=== PATIENT | male | born 1995 | race American Indian/Alaskan Native ===

== ENCOUNTER 2020-01-08 10:49 | Emergency (ER) | payer SELFPAY ==
[2020-01-08 10:56] VITALS: BP 143/80
--- NOTE | 2020-01-08 11:02 | Event Note ---
ED Screening Note Date of service: 01/08/20 Time: 11:02 ED Screening Note: Patient complains of sudden onset of left wrist pain upon waking this morning He denies any injury He denies history of gout, however admits to family history of gout Patient rates his pain as a 9/10 in severity This initial assessment/diagnostic orders/clinical plan/treatment(s) is/are subject to change based on patients health status, clinical progression and re- assessment by fellow clinical providers in the ED. Further treatment and workup at subsequent clinical providers discretion. Patient/guardian urged not to elope from the ED as their condition may be serious if not clinically assessed and managed. Initial orders include: X-ray
--- NOTE | 2020-01-08 11:32 | XRay Report ---
LEFT WRIST 3 VIEWS INDICATION / CLINICAL INFORMATION: Posterior left wrist pain for 2 days. No known injury. COMPARISON: None available. FINDINGS: BONES and JOINT(S): A small triquetral avulsion fracture is noted. No dislocation. No significant art hritis. SOFT TISSUES: Mild edema is seen dorsally along the wrist. ADDITIONAL FINDINGS: None. IMPRESSION: Likely acute left triquetral fracture as above given the provided history. Please correlate with the clinical findings. Signer Name: Edilberto Perez MD Signed: 01/08/2020 11:28 AM Workstation Name: [id number]
[2020-01-08] MEDS ORDERED: IBUPROFEN 600 MG TAB PO ONE (15:24)
--- NOTE | 2020-01-08 15:28 | Emergency Department Report ---
Upper Extremity - HPI Chief Complaint: Extremity Injury, Upper Stated Complaint: HAND PAIN Time Seen by Provider: 01/08/20 11:01 Other History: Patient is a 24-year-old male who presents emergency room complaints of left wrist and hand pain that began this morning when he woke up. He states he thought he slept wrong on it but the pain made it difficult to move. He denies any fall, injury, hitting anything against it. He states he had a sprain in this wrist in 2013. He denies any numbness or weakness. He denies any past medical history. He denies allergies to medications. ED Review of Systems ROS: Stated complaint: HAND PAIN Other details as noted in HPI Comment: All other systems reviewed and negative ED Past Medical Hx - Past Medical History Previous Medical History?: Yes Hx Diabetes: Yes - Surgical History Past Surgical History?: No - Social History Smoking Status: Current Every Day Smoker Substance Use Type: Alcohol - Medications Home Medications: Home Medications Medication Instructions Recorded Confirmed Last Taken Type Acetaminophen/Codeine [Tylenol #3] 1 tab PO Q6H PRN #20 tab 09/27/15 Unknown Rx Ibuprofen [Motrin] 600 mg PO Q8H PRN #40 tablet 09/27/15 Unknown Rx Naproxen [EC-Naprosyn] 500 mg PO BID PRN #14 tablet. 01/08/20 Unknown Rx traMADoL [Ultram 50 MG tab] 50 mg PO Q8HR PRN #7 tablet 01/08/20 Unknown Rx Upper Extremity Exam - Exam General: Vital signs noted. No distress. Alert and acting appropriately. Arm Exam: No Arm/Humerus Tenderness, No Arm Deformity Elbow: Yes Normal Range of Motion in Elbow, No Elbow Tenderness, No Elbow Deformity Forearm: No Forearm Tenderness, No Forearm Deformity, No Pain with Pronation, No Pain with Supination Wrist: Yes Wrist Tenderness (left medial wrist ttp), Yes Normal ROM in Wrist, No Wrist Deformity, No Snuffbox Tenderness Hand: Yes Hand Tenderness (left medial over the carpal bone), Yes Normal ROM in Digit(s), No Hand Deformity, No Digit Tenderness, No Digit(s) Deformity, No Tendon Dysfunction CMS Exam: Yes Normal Distal Pulses, Yes Normal Capillary Refill, Yes Normal Distal Sensation, No Broken Skin ED Course Vital Signs 01/08/20 10:55 Temperature 98.2 F Pulse Rate 71 Respiratory 18 Rate Blood Pressure 143/80 O2 Sat by Pulse 98 Oximetry ED Medical Decision Making - Radiology Data Radiology results: report reviewed LEFT WRIST 3 VIEWS INDICATION / CLINICAL INFORMATION: Posterior left wrist pain for 2 days. No known injury. COMPARISON: None available. FINDINGS: BONES and JOINT(S): A small triquetral avulsion fracture is noted. No dislocation. No significant arthritis. SOFT TISSUES: Mild edema is seen dorsally along the wrist. ADDITIONAL FINDINGS: None. IMPRESSION: Likely acute left triquetral fracture as above given the provided history. Please correlate with the clinical findings. Signer Name: Edilberto Perez MD Signed: 01/08/2020 11:28 AM Workstation Name: [id number] Transcribed By: LIZZ Dictated By: Edilberto Perez MD Electronically Authenticated By: Edilberto Perez MD Signed Date/Time: 01/08/208 DD/ 23 TD/TT: - Medical Decision Making Patient is a 24-year-old male who presents emergency room complaints of left wrist and hand pain that began this morning when he woke up. He states he thought he slept wrong on it but the pain made it difficult to move. He denies any fall, injury, hitting anything against it. He states he had a sprain in this wrist in 2013. He denies any numbness or weakness. He denies any past medical history. He denies allergies to medications. Vitals are stable. On exam: Tenderness to palpation over the left medial wrist and left medial lower hand, no obvious deformity, full range of motion, neurovascularly intact. X-ray left wrist: Likely acute left triquetral fracture as above given the provided history. Please correlate with the clinical findings. Due to x-ray findings and bony tenderness to palpation, patient placed in short arm volar splint by EMT and remained neurovascularly intact. Patient given prescription for naproxen and short course of tramadol. Discussed with patient the importance of orthopedic follow-up. Advised patient Please take medication as prescribed. Do not drive or operate heavy machinery while taking severe pain medication. Please leave splint on until you are cleared by orthopedic doctor. Follow-up with orthopedic doctor. Return to emergency room for any new or worsening symptoms. - Differential Diagnosis Strain, sprain, fracture, dislocation, carpal tunnel, cubital tunnel, arthr Critical care attestation.: If time is entered above; I have spent that time in minutes in the direct care of this critically ill patient, excluding procedure time. ED Disposition Clinical Impression: Carpal bone fracture Qualifiers: Encounter type: initial encounter Carpal bone: triquetrum Fracture type: closed Fracture alignment: displaced Laterality: left Qualified Code(s): S62.112A - Displaced fracture of triquetrum [cuneiform] bone, left wrist, initial encounter for closed fracture Disposition: TO HOME OR SELFCARE Is pt being admited?: No Does the pt Need Aspirin: No Condition: Stable Instructions: SUSPECTED FRACTURE (ED) Additional Instructions: Please take medication as prescribed. Do not drive or operate heavy machinery while taking severe pain medication. Please leave splint on until you are cleared by orthopedic doctor. Follow-up with orthopedic doctor. Return to emergency room for any new or worsening symptoms. Prescriptions: Naproxen [EC-Naprosyn] 500 mg PO BID PRN #14 tablet.dr PRN Reason: pain traMADoL [Ultram 50 MG tab] 50 mg PO Q8HR PRN #7 tablet PRN Reason: Pain , Severe (7-10) Referrals: GEORGETTE BURTON MD [Staff Physician] - 2-3 Days [facility] [Provider Group] - 2-3 Days Time of Disposition: 15:27 Print Language: [place]IZ[place]
== END 2020-01-08 16:03 | disposition home or self-care (01) ==
LOC: ED 10:49
DX: S62.112A Displaced fracture of triquetrum [cuneiform] bone, left wrist, initial encounter for closed fracture (principal); E11.9 Type 2 diabetes mellitus without complications; F17.200 Nicotine dependence, unspecified, uncomplicated; Z79.899 Other long term (current) drug therapy; X58.XXXA Exposure to other specified factors, initial encounter; Y93.89 Activity, other specified; Y92.89 Other specified places as the place of occurrence of the external cause; Y99.8 Other external cause status